=== PATIENT | female | born 1985 | race Caucasian/White ===

== ENCOUNTER → 2016-08-07 | Outpatient (CLI) | payer MEDICAID | LOC: FIMAGING 19:20 | PROVIDERS: ATTEND Orthopaedic Surgery | DX: S82.61XG Displaced fracture of lateral malleolus of right fibula, subsequent encounter for closed fracture with delayed healing (principal); M24.271 Disorder of ligament, right ankle ==

== ENCOUNTER 2016-09-09 13:34 | Day surgery (SDC) | payer MEDICAID ==
[2016-09-09] MEDS ORDERED: LIDOCAINE 1% 5 ML SDV ID PRN (14:21)
[2016-09-09] MEDS ORDERED: LR 1,000 ML IV ONE (14:21)
[2016-09-09] MEDS ORDERED: CHLORHEXIDINE GLUC HIBICLENS 118 ML BTL TP ONE (14:30)
[2016-09-09] MEDS ORDERED: ceFAZolin 2 GM/DEXTROSE 100 ML IV ONE (14:30)
[2016-09-09] MEDS ORDERED: LIDOCAINE 1% 2 ML INJ ONE (14:40)
[2016-09-09] MEDS ORDERED: MIDAZOLAM 2 MG/2 ML VIAL ONE (15:24)
[2016-09-09] MEDS ORDERED: PROPOFOL 200 MG/20 ML VIAL ONE (15:32)
[2016-09-09] MEDS ORDERED: fentaNYL 100 MCG/2 ML INJ ONE ×4 (15:32→18:11)
[2016-09-09] MEDS ORDERED: LIDOCAINE 2% 5 ML SDV ONE (15:33)
[2016-09-09] MEDS ORDERED: ONDANSETRON 4 MG/2 ML VIAL ONE ×3 (15:34→18:04)
[2016-09-09] MEDS ORDERED: DEXAMETHASONE 4 MG/ML VIAL ONE ×2 (15:34)
[2016-09-09] MEDS ORDERED: KETOROLAC 30 MG/1 ML SDV ONE (17:16)
--- NOTE | 2016-09-10 07:20 | GOP ---
[f rep st] OPERATIVE REPORT DATE OF OPERATION: 09/09/2016 SURGEON: Alessandro Maddox MD [employer] WORKER: Ti Farrell SA. ANESTHESIA: General. PREOPERATIVE DIAGNOSIS: Right ankle impingement and instability. POSTOPERATIVE DIAGNOSIS: 1. Right ankle impingement. 2. Right ankle instability. 3. Partial nonunion fibula fracture. PROCEDURE PERFORMED: FINDINGS: SPECIMENS: None. ESTIMATED BLOOD LOSS: 5 mL. INDICATIONS: This is a 30-year-old female who I saw for an ankle fracture and treated conservativel y. She continued to have symptoms more of anterolateral ankle joint and symptoms consistent with in stability. I obtained an MRI. I counselled her on the risks and benefits of surgical intervention as she had failed nonoperative treatment. The MRI did talk about a potential for a partial fibular nonunion of a partially healed fibula. I did not think at the time on her exam her fibula was all t hat painful for her. We discussed the risks of needing to do a nonunion type procedure, more extensive surgery, nerve inj ury, wound complications, instability, pain, and she elected to proceed. Informed consent obtained. All questions answered. She was marked preoperatively. DESCRIPTION OF PROCEDURE: She was taken to the operative suite. Anesthesia was induced. A poplite al block was administered per Anesthesia. She was given Ancef 2 g. She was sterilely prepped and d raped in normal fashion. Time-out was performed verifying site, side, location and agreement with t team. The tourniquet was inflated. The ankle was insufflated to establish the medial and lateral portal o f skin only. She had extensive synovitis in the ankle. It was quite impressive, especially anterol aterally and anteriorly. I debrided this. I also used a bur to shave a portion of her anterior ank le plafond to get rid of the impingement. She had extensive synovitis and scar tissue over the fibu la at the level of the ankle joint. I debrided this. I did probe up the syndesmotic and tested thi s manually and I felt the syndesmosis was stable. She also had significant synovitis and scar in th e posterolateral portion ankle as well as in the medial gutter and this was debrided. I established a posterolateral portal with a spinal needle localization and debrided this area working front to b ack and back to front. I was able to work into her lateral gutter and debride scar tissue in this a brigitte as well. At the end, I felt I had her lateral gutter cleaned out and stabilized. The scope was removed. I made an open incision over the distal fibula and elevated the lateral ankl e ligaments off the fibula. Exposing the fibula the old fracture site was evident. There was a gap that was filled with scar tissue on the more superficial portion of the fibula. I debrided the sca r out of this, but there did appear to be a bony union deep to this and it felt that they moved as a union. I did put holes in the bone and decorticated. I filled this was bone graft however in an a ttempt to get a more solid bony union of her fibula and any contribution of this pain this might hav e. I then used Krackow #2 in the lateral ankle ligaments. Protecting the neurovascular structures, I drilled holes in the fibula. I reduced the ankle joint and sequentially placed two 9 Push Locks helping to achieve good ankle stability. This was oversewn with #1 Vicryl. I irrigated and closed with 2-0 Vicryl, 3-0 Monocryl, and Dermabond. She was placed in a splint, sterile dressing and take n to the PACU in stable condition. PROCEDURES: 1. Right ankle arthroscopy with extensive debridement. 2. 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 3. Right ankle Brostrom procedure. IMPLANTS: 1. Arthrex two 9 Push Locks. 2. FiberWire. COMPLICATIONS: None. DRAINS: None. CONDITION: Stable. /[id number]/MODL
== END 2016-09-09 19:40 | disposition home health service (06) ==
LOC: FSGY 13:34
PROVIDERS: ATTEND Orthopaedic Surgery
DX: S82.401K Unspecified fracture of shaft of right fibula, subsequent encounter for closed fracture with nonunion (principal); M77.51 Other enthesopathy of right foot and ankle; M25.371 Other instability, right ankle
CPT/HCPCS: 27695; 27726; 29898; C1769; C1713; C1762; J0690; J1100; J1885; J2250; J2405; J2704; J3010

== ENCOUNTER 2017-01-13 09:41 | Emergency (ER) | payer OTHER ==
[2017-01-13 09:53] VITALS: RESP 16
--- NOTE | 2017-01-13 10:01 | CPEKG ---
Heart Rate: 62 RR Interval: 968 P-R Interval: 136 QRSD Interval: 88 QT Interval: 396 QTC Interval: 402 P Graham: 60 QRS Graham: 53 T Wave Graham: 51 EKG Severity - OTHERWISE NORMAL ECG - EKG Impression: SINUS RHYTHM EKG Impression: LOW VOLTAGE IN FRONTAL LEADS Electronically Signed By: Meghan Hunt 13-Jan-2017 12:33:27
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
[2017-01-13 11:07] VITALS: BP 125/84; PULSE 75; TEMP 98.8; O2SAT 97
== END 2017-01-13 11:06 | disposition home or self-care (01) ==
LOC: CED 09:41
DX: S09.90XA Unspecified injury of head, initial encounter (principal); S16.1XXA Strain of muscle, fascia and tendon at neck level, initial encounter; R55 Syncope and collapse; V49.49XA Driver injured in collision with other motor vehicles in traffic accident, initial encounter; Y92.410 Unspecified street and highway as the place of occurrence of the external cause; Y99.8 Other external cause status; Y93.89 Activity, other specified
CPT/HCPCS: 70450-PO; 72125-PO